=== PATIENT | male | born 1955 | race Caucasian/White ===

== ENCOUNTER 2017-11-30 13:00 | Outpatient (CLI) | payer OTHER | END 2017-11-30 13:01 | disposition home or self-care (01) | LOC: BICCT 13:00 | PROVIDERS: ATTEND Urology | DX: N20.0 Calculus of kidney (principal); N40.0 Benign prostatic hyperplasia without lower urinary tract symptoms | CPT/HCPCS: 74178 ==

== ENCOUNTER 2018-02-04 09:27 | Outpatient (CLI) | payer OTHER ==
[2018-02-04 10:52] LABS: Hemoglobin 13.8 g/dL (14.0-18.0); Mean Corpuscular HGB CONC 32.3 g/dL (32.0-36.0); Platelet Count 171 thou/uL (130-400); RBC Distribution Width 11.5 % (11.5-14.5); Red Blood Cell (RBC) Count 4.59 mill/uL (4.70-6.10); White Blood Cell (WBC) Count 4.8 thou/uL (4.8-10.8)
[2018-02-04 10:57] LABS: INR-International Normal Ratio 1.1; PTT 25.7 SEC (22.9-36.1); Prothrombin Time 14.5 SEC (12.0-14.7)
[2018-02-04 11:14] LABS: Bilirubin Negative (Negative); Blood, Urine Negative (Negative); Clarity CLEAR (Clear); Glucose, Urine (Dipstick) Negative (Negative); Leukocyte Negative (Negative); Nitrite Negative (Negative); Protein, Urine (Dipstick) Negative (Neg-Trace); Specific Gravity, Urine 1.014 (1.002-1.036)
[2018-02-04 11:15] LABS: Anion Gap 13 mmol/L (10-20); BUN (Urea Nitrogen) 15 mg/dL (8.4-25.7); Calc. Creatinine Clearance 0 mL/min (70-130); Calcium 9.7 mg/dL (7.8-10.44); Carbon Dioxide 25 mmol/L (22-29); Chloride 105 mmol/L (98-107); Estimated GFR-MDRD 77; Glucose 122 mg/dL (70-105); Potassium 3.7 mmol/L (3.5-5.1); Sodium 139 mmol/L (136-145)
[2018-02-04 11:17] LABS: Bacteria/HPF None Seen HPF (None Seen); Hyaline Casts/LPF 0-3 HYALINE CAST LPF (0-3 Hyaline); Pathc Cast-AUWi Flag 0.14 (0-2.49); RBC/HPF 0-3 HPF (0-3); Squamous Epithelial None Seen HPF (0-3); WBC/HPF None Seen HPF (0-3)
--- NOTE | 2018-02-04 13:08 | RAD ---
CHEST 2 VIEWS: INDICATION: Preop evaluation. COMPARISON: None. FINDINGS: Heart size is within normal limits. The lungs are clear. No pleural effusion is evident. No acute osseous abnormality is evident. IMPRESSION: No acute cardiopulmonary process. POS: [facility]
--- NOTE | 2018-02-07 11:48 | EKG ---
Test Reason : Blood Pressure : / mmHG Vent. Rate : 083 BPM Atrial Rate : 083 BPM P-R Int : 168 ms QRS Dur : 084 ms QT Int : 396 ms P-R-T Axes : 065 -31 061 degrees QTc Int : 465 ms Normal sinus rhythm Left axis deviation Possible Anterior infarct , age undetermined Abnormal ECG No previous ECGs available Confirmed by LORI PICHARDO ([id number]) on 02/07/2018 11:47:58 AM Referred By: DAYSI Confirmed By:LORI PICHARDO
== END 2018-02-04 09:28 | disposition home or self-care (01) ==
LOC: LABBT 09:27
PROVIDERS: ATTEND Urology
DX: Z01.818 Encounter for other preprocedural examination (principal); Z12.5 Encounter for screening for malignant neoplasm of prostate; N40.1 Benign prostatic hyperplasia with lower urinary tract symptoms; R35.1 Nocturia; Z87.898 Personal history of other specified conditions; Z87.442 Personal history of urinary calculi; Z98.890 Other specified postprocedural states
CPT/HCPCS: 71046; 80048; 81001; 85027; 85610; 85730; 87086; 93005; 93010

== ENCOUNTER 2018-02-16 10:37 | Day surgery (SDC) | payer OTHER ==
[2018-02-04 09:35] VITALS: BMI 31.4
[2018-02-16] MEDS ORDERED: Meropenem 2 GM in Admixture Fee 1 EACH IVPB SCH (13:45)
[2018-02-16] MEDS ORDERED: Meropenem 2 GM, Admixture Fee 1 EACH in Sodium Chloride 0.9% 100 ML IVPB SCH (13:45)
[2018-02-16] MEDS ORDERED: Fentanyl 100 MCG/2 ML VIAL ONE ×2 (14:20→15:49)
[2018-02-16] MEDS ORDERED: Phenazopyridine HCl 97.5 MG TABLET ONE (15:49)
[2018-02-16] MEDS ORDERED: Oxybutynin 5 MG TAB ONE (15:49)
[2018-02-16] MEDS ORDERED: PROPOFOL 200 MG/20 ML VIAL ONE (16:59)
[2018-02-16] MEDS ORDERED: Lidocaine 1% PF 5 ML VIAL ONE (16:59)
[2018-02-16] MEDS ORDERED: ePHEDrine/0.9% NaCl/PF SYRINGE 50 mg/10 ml ONE (16:59)
[2018-02-16] MEDS ORDERED: Ondansetron PF 4 MG/2 ML Vial ONE (16:59)
[2018-02-16] MEDS ORDERED: PHENYLEPHRINE-NS 100 MCG/ML 10 ML SYRINGE ONE (16:59)
--- NOTE | 2018-02-16 20:36 | OP ---
PREOPERATIVE DIAGNOSES: 1. A 62-year-old male with history of elevated PSA, previous biopsy x3, negative for malignancy. 2. History of renal lithiasis: 3-4 mm right lower pole renal calculi. 3. BPH with incomplete emptying. 4. Persistent elevated PSA on 5 alpha reductase inhibitor compensated. POSTOPERATIVE DIAGNOSES: 1. A 62-year-old male with history of elevated PSA, previous biopsy x3, negative for malignancy. 2. History of renal lithiasis: 3-4 mm right lower pole renal calculi. 3. Benign with incomplete emptying. 4. Persistent elevated PSA on 5 alpha reductase inhibitor compensated PROCEDURE: Flexible cystoscopy, transrectal ultrasound volume study, saturation biopsy. SURGEON: Trang Corado D.O. ANESTHESIA: General LMA. COMPLICATIONS: None apparent. DISPOSITION: To the recovery room in stable condition. INTRAOPERATIVE FINDINGS: Flexible cystoscopy demonstrates severe bilobar hyperplasia of the prostate with no gross evidence of intravesical median lobe, bilateral ureteral orifices approximately 3 mm p roximal to the bladder neck ultrasound demonstrates no obvious lesion of concern. INDICATIONS FOR THE PROCEDURE AND HISTORY: Mr. Hobbs is a pleasant 62-year-old male who has previou sly undergone 2 biopsies at [facility], one in [place] negative for malignancy. He does have a h istory of ureteral stone and underwent stone treatment at the [facility], Dr. Coe. He presented for evaluation of BPH, elevated PSA. Initial LOS demonstrated no discr ete nodularity. Incidentally, he has a meatal caliber, approximately 12 Albanian. He has been on 5 al pha reductase inhibitor with corresponding compensated PSA of approximately 6.0. Although this is si gnificantly improved from prior PSA of 19, I did inform the patient regarding possibility of occult m alignancy. We did attempt to get an MRI fusion biopsy; however, his insurance has declined. MRI robby ging with 3 Marcela magnet. Therefore, patient presents today for saturation prostate biopsy, as we ar e contemplating surgical intervention for BPH if no significant malignancy is found. DESCRIPTION OF THE PROCEDURE: After an informed consent is signed, the patient is taken to the opera ting room, placed in a dorsal lithotomy position with the genital area prepped and draped in the usua l surgical sterile fashion. He has been fully informed regarding increased risk of sepsis, significa nt hematuria, blood per rectum as he is undergoing saturation biopsy, chronic pain. As he has preexi sting incomplete emptying, I informed the patient that it would be trevino to have an indwelling urethra l Terrell catheter prior to procedure which he agrees to do this. As the patient has a prior history o f urinary retention, status post ureteroscopy and agrees to have after periprocedural indwelling uret hral Terrell catheter. The genital area was prepped and draped in a supine position and we did perform a flexible cystoscopy first. The anterior urethra was within normal limits. There is severe biloba r hyperplasia of the prostate obstructing in nature. The bladder was entered which demonstrated that there was no evidence of bladder stone obvious trabeculation of concern stones or tumors. His urete ral orifices were mildly patulous approximately 3 mm from the bladder neck. I did not appreciate obv ious intravesical median lobe of concern. His UO's were easily visualized. At this time, we placed a 16 Albanian 10 mL indwelling urethral Terrell catheter to leg bag which demonstrated clear urine output . He was then placed in a lateral decubitus position. Of note, he did receive IV meropenem, and Eliot trim preprocedure starting yesterday as his rectal swab demonstrates Cipro resistance. We performed a standard transrectal ultrasound volume study. This demonstrated urethral length of 7.02 cm with a 6.3, height of 5.56, volume calculated to be 128.8 grams. There was no significant lesion of concern on ultrasound. At this time, we performed a standard 12 core needle biopsy. In addition to the 12 cores biopsy, we did perform a saturation biopsy of obtaining additional midline, and parasagittal tr ansitional biopsies. We did also obtain bilateral anterior biopsies of his prostate. A total of 28 cores were obtained. He tolerated the procedure well. At the end of the procedure, his Terrell cathet er demonstrated pink tinged urine. He is to be discharged with Bactrim-DS until followup appointment x7 days, Colace p.r.n., short course of [place] 5/325 provided. Return to clinic next week to have ca theter removal for a voiding trial and review of pathology.
== END 2018-02-16 17:42 | disposition home or self-care (01) ==
LOC: SDC 10:37
PROVIDERS: ATTEND Urology
PROC: 0VB03ZX Excision of Prostate, Percutaneous Approach, Diagnostic (ICD-10-PCS; principal; 2018-02-16)
DX: N41.1 Chronic prostatitis (principal); N40.1 Benign prostatic hyperplasia with lower urinary tract symptoms; R39.14 Feeling of incomplete bladder emptying; R35.1 Nocturia; E11.9 Type 2 diabetes mellitus without complications; I10 Essential (primary) hypertension; Z87.442 Personal history of urinary calculi; Z79.82 Long term (current) use of aspirin; Z79.84 Long term (current) use of oral hypoglycemic drugs; Z79.899 Other long term (current) drug therapy; Z88.0 Allergy status to penicillin; Z98.890 Other specified postprocedural states
CPT/HCPCS: 88305; 96374; J2001; J2185; J2405; J2704; J3010; J7050

== ENCOUNTER 2018-11-07 09:52 | Outpatient (CLI) | payer OTHER ==
[2018-11-07 10:23] LABS: Anion Gap 13 mmol/L (10-20); BUN (Urea Nitrogen) 14 mg/dL (8.4-25.7); Calc. Creatinine Clearance 0 mL/min (70-130); Calcium 9.4 mg/dL (7.8-10.44); Carbon Dioxide 25 mmol/L (23-31); Chloride 107 mmol/L (98-107); Estimated GFR-MDRD 75; Glucose 148 mg/dL (80-115); Potassium 3.4 mmol/L (3.5-5.1); Sodium 142 mmol/L (136-145)
[2018-11-07 11:37] LABS: Bilirubin Negative (Negative); Blood, Urine Negative (Negative); Clarity Clear (Clear); Glucose, Urine (Dipstick) Negative (Negative); Leukocyte Negative (Negative); Nitrite Negative (Negative); Protein, Urine (Dipstick) Negative (Neg-Trace); Urobilinogen 0.2 mg/dL (Less than 2)
--- NOTE | 2018-11-07 11:44 | ULT ---
Renal sonogram HISTORY: Flank pain. Renal stone. COMPARISON: CT abdomen 11/30/2017. FINDINGS: Right kidney is 11.0 cm length and the left is 12.2 cm. Each has a normal appearance withou t evidence of mass, stone, or hydronephrosis. Urinary bladder is initially incompletely distended. No focal abnormalities. Liver is diffusely hyperechoic. Prostate gland is lobular, heterogeneous, and measures up to 6.8 cm. IMPRESSION: No evidence of urinary tract obstruction or focal renal abnormality. Enlarged prostate gland.
--- NOTE | 2018-11-07 11:49 | RAD ---
Abdomen one view HISTORY: Renal stone. COMPARISON: CT abdomen 11/22/2017. FINDINGS: Visualized bowel gas pattern is nonspecific. Projecting over the superior pole of the right renal shadow is an oval calcification that measures 0.5 cm craniocaudal diameter on the radiograph. No other calcifications are apparent over either urinary tract. Mild degenerative changes of the hips. IMPRESSION: Right renal calculus. Appears stable compared to the 2018 CT exam.
[2018-11-07 12:05] LABS: Urine Culture Reflex No No
[2018-11-07 12:08] LABS: Bacteria/HPF None Seen HPF (None Seen); RBC/HPF 0-3 HPF (0-3); Squamous Epithelial 0-3 HPF (0-3); WBC/HPF 0-3 HPF (0-3)
== END 2018-11-07 09:53 | disposition home or self-care (01) ==
LOC: SCSULT 09:52
PROVIDERS: ATTEND Urology
DX: Z12.5 Encounter for screening for malignant neoplasm of prostate (principal); N20.0 Calculus of kidney; N40.1 Benign prostatic hyperplasia with lower urinary tract symptoms; R35.1 Nocturia; Z79.899 Other long term (current) drug therapy
CPT/HCPCS: 36415; 74018; 76770; 80048; 81001; G0103